=== PATIENT | male | born 1930 | race Caucasian/White ===

== ENCOUNTER → 2017-03-13 | Day surgery (SDC) | payer MEDICARE, BC ==
[~2017-03-13] MED LIST: AMLO5TAB96 PO; ASPI325T24 PO; BISO1TAB6 PO; BUPIVACAINE/EPINEPHRINE 0.25% PF 10 ML VIAL ONE; CARD8TAB6 PO; CLOP75 PO; DIOV160T60 PO; ENAL20TA81 PO; ISOS20TA PO; KETOROLAC TROMETHAMINE 30 MG/ML (IVP) VIAL IV PUSH ONE; LACTATED RINGER'S 1000 ML INJ 1,000 ML ONE; LIDOCAINE 1%/EPINEPHrine 1:100,000 SOLN 20 ML VIAL ONE; LIPI80TA16 PO; ONDANSETRON HCL 4 MG/2 ML VIAL IV PUSH ONE; PROPOFOL 200 MG/20 ML AMP IV ONE; ceFAZolin INJ 1,000 MG VIAL ONE
--- NOTE | 2017-03-13 13:29 | TN ---
cc: FERMIN LEWIS GREGORY A. MD BIANCHI, JOSEPH D. M.D. DATE OF SURGERY 03/13/2017 PREOPERATIVE DIAGNOSIS Large left inguinal hernia. POSTOPERATIVE DIAGNOSIS Large left inguinal hernia. PROCEDURE Repair of left inguinal hernia with mesh. ANESTHESIA General SURGEON Dr. Lurdes NAVARRO ASST. Deepthi MONTES DE OCA The RN HOME HEALTH was present from beginning to the end of the case assisting in all portions of the procedure. It was necessary to have this individual in the room to assist in the above surgical procedure. The surgical procedure was assisted by the RN HOME HE[facility]. The RN HOME HEALTH presence was necessary throughout the case for appropriate retraction, dissection, visualization, and resection of the important anatomical structures during the surgical procedure. The RN HOME HE[employer] was assisting throughout the entirety of the operation. The skill set of the RN [facility] is medically and surgically necessary to safely complete the surgical procedure. During the surgical case, the operating room injection maintenance technician was working instrument table and passing instruments to the attending surgeon and RN [facility]. The RN HOME [facility] was directly assisting the operating surgeon and involved in the technical aspects of the surgical case. INDICATIONS This is a pleasant 86-year-old gentleman who has a fairly large left inguinal hernia. Plans were made for above. PROCEDURE The patient taken to the operating room, placed in the supine position. After anesthesia, his left abdomen and groin were prepped with Betadine. He was given preoperative antibiotics. Time-out was performed. We made an oblique incision overlying the internal and external ring, dissect down through Pedro fascia identifying the external fascia which was incised. A significant sized direct defect is identified with a small indirect defect. Both of these were reduced. We then place a piece of polypropylene mesh securing to the pubic tubercle, Qamar's ligament and the iliopubic tract out laterally, the conjoined tendon medial, tails were fashioned and secured to themselves and secured to the internal oblique aponeurosis. We did place another piece of mesh overlapping the tails to further buttress more superiorly where the tissue was somewhat weakened as well to cover this completely. This was secured to the mesh and to the internal oblique aponeurosis. We then close the external oblique aponeurosis with a 2-0 Vicryl, Pedro's with 2-0 Vicryl and skin with 4-0 Vicryl. Steri-Strips applied. Sterile bandage applied. The patient tolerated the procedure well. No immediate postop complications. MD SHANDA Spears/LIZETH /1:07 PM /1:17 PM [id number]
== END | disposition home or self-care (01) ==
LOC: ESDC 10:07
PROVIDERS: ATTEND Surgery
DX: K40.90 Unilateral inguinal hernia, without obstruction or gangrene, not specified as recurrent (principal)
CPT/HCPCS: 00830; 49505; C1781; J0690; J1885; J2405; J3010; J7120